=== PATIENT | female | born 1985 | race Caucasian/White ===

== ENCOUNTER 2020-04-21 19:29 | Emergency (ER) | payer MEDICAID ==
[~2020-04-21] VITALS: Ht 157.5 cm; Wt 56.8 kg
[~2020-04-21 19:29] MED LIST: NOCURR
[2020-04-21 19:36] VITALS: BP 117/72
== END 2020-04-21 22:30 | disposition home or self-care (01) ==
LOC: EMS 19:29
DX: R51.9 Headache, unspecified (principal); Z20.828 Contact with and (suspected) exposure to other viral communicable diseases
CPT/HCPCS: 99283; U0003

== ENCOUNTER 2020-07-14 13:04 | Emergency (ER) | payer MEDICAID ==
[~2020-07-14] VITALS: Ht 165.1 cm; Wt 59.1 kg
[2020-07-14 13:10] VITALS: BP 105/66
== END 2020-07-14 14:53 | disposition home or self-care (01) ==
LOC: EMS 13:04
DX: B30.9 Viral conjunctivitis, unspecified (principal)
CPT/HCPCS: 99282; Z7502